=== PATIENT | female | born 1985 | race Caucasian/White ===

== ENCOUNTER 2018-12-06 00:17 | Emergency (ER) | payer OTHER, SELFPAY ==
--- NOTE | 2018-12-06 00:20 | ED_ITS ---
HPI - Skin/Abscess/Foreign Bdy General Chief complaint: Skin/Abscess/Foreign Body Stated complaint: hard cyst on inner right thigh - painful Time Seen by Provider: 12/06/18 00:19 Source: patient Mode of arrival: Ambulatory Limitations: no limitations History of Present Illness HPI narrative: 33-year-old female nonsmoker presents with significant other in the chief complaint of a painful red, spontaneously draining lesion in her right groin which is reminiscent of prior abscesses. She denies fever chills nor nausea or vomiting. It has been gradually worsening over the past week and started draining earlier today. Her pain is worse with motion and improves with rest. MD complaint: abscess/boil Onset (ago): day(s) Tetanus up to date: yes Location: RLE Severity: mild Quality: aching Pain Consistency: constant Relieving factors: rest Exacerbating factors: palpation and movement Associated symptoms: denies other symptoms Treatments prior to arrival: attempted to drain pus at home Related Data Previous Rx's Medication Instructions Recorded doxycycline hyclate 100 mg PO BID #20 tab 12/06/18 Allergies Allergy/AdvReac Type Severity Reaction Status Date / Time No Known Drug Allergies Allergy Verified 12/06/18 00:35 Review of Systems Constitutional Constitutional: Denies chills, Denies fatigue, Denies fever(s), Denies frequent falls, Denies lethargy and Denies weakness Eyes Eyes: Denies change in vision, Denies eye discharge, Denies irritation and Denies loss of vision ENT Ears, Nose, Mouth, and Throat: Denies change in voice, Denies dizziness, Denies neck pain, Denies sore throat and Denies throat swelling Cardiovascular Cardiovascular: Denies chest pain, Denies irregular heart rhythm, Denies lightheadedness, Denies palpitations, Denies dyspnea, Denies dyspnea on exertion and Denies orthopnea Respiratory Respiratory: Denies cough, Denies dyspnea, Denies dyspnea on exertion and Denies wheezing Gastrointestinal Gastrointestinal: Denies abdominal pain, Denies change in bowel habits, Denies diarrhea, Denies nausea and Denies vomiting Genitourinary Genitourinary: Denies hematuria, Denies flank pain, Denies urinary incontinence and Denies urinary urgency Musculoskeletal Musculoskeletal: Denies back pain, Denies muscle weakness, Denies neck pain, Denies numbness and Denies tingling Integumentary/Breasts Skin/Breast: Denies pruritus, Reports erythema, Denies rash, Reports skin pain, Reports skin swelling and Denies wounds Neurologic Neurologic: Denies behavioral changes, Denies confusion, Denies dizziness, D enies frequent falls, Denies loss of vision, Denies numbness, Denies tingling and Denies weakness Psychiatric Psychiatric: Denies anxiety, Denies behavioral changes, Denies confusion, Denies depression, Denies homicidal ideation and Denies suicidal ideation Endocrine Endocrine: Denies fatigue, Denies flushing and Denies palpitations Hematologic/Lymphatic Hematologic/Lymphatic: Denies easy bruising Allergic/Immunologic Allergic/Immunologic: Denies urticaria, Denies throat swelling and Denies wheezing [facility] Medical History Macular degeneration of both eyes (Acute) Social History Smoking Status: Current every day smoker Social History Smoking Status: Current every day smoker Exam Narrative Exam Narrative: GEN: 33-year-old female appears stated age, tearful, morbidly obese AOx3 and in mild distress EYES: Pupils are equal, round, and reactive to light and accommodation. Extraoccular muscles are intact bilaterally. There is no subconjunctival hemorrhage or exudate. CHEST: Lungs are clear to auscultation bilaterally and free of wheezes, rales, or rhonchi. Heart rate is regular rhythm, there are no murmurs, clicks, rubs, or gallops. There is no chest wall tenderness. ABD: Abdomen is soft and nontender. There is no guarding or rebound. Bowel sounds are normal in all 4 quadrants. There is no mass or organomegaly. EXT: Full painless ROM of all extremities with no loss of sensation or strength. SKIN: 2 cm x 2 cm area of induration, erythema, warmth with central opening and spontaneous drainage of foul-smelling purulence material consistent with superficial abscess there is some surrounding induration but no fluctuance outside of this main central area Initial Vital Signs Initial Vital Signs: Vital Signs Pulse Rate 111 H 12/06/18 00:32 Respiratory Rate 16 12/06/18 00:32 Blood Pressure 141/73 H 12/06/18 00:32 Pulse Oximetry 96 12/06/18 00:32 Procedures Abscess I/D Site: lower extremity Side (if applicable): right Local Anesthetic: lidocaine 1% and with bicarb Amount of anesthesia used (mL): 6 Technique: incised with #11 blade Amount of fluid expressed (mL): 5 Irrigation: No Packing used?: none Course Orders Ordered: ED Orders 12/06/18 00:30 Wound Culture and Gram Stain Stat Discontinued Medications Hydrocodone Bitart/Acetaminophen (Vicodin Prepack) 1 bottle MISC SEEINSTR ONE Stop: 12/06/18 00:30 Last Admin: 12/06/18 00:41 Dose: 1 bottle Documented by: MAX Doxycycline Hyclate (Vibramycin) 100 mg PO NOW ONE Stop: 12/06/18 00:30 Last Admin: 12/06/18 00:41 Dose: 100 mg Documented by: MAX Lidocaine/Sodium Bicarbonate (Buffered Lidocaine 10 Ml Syr) 10 ml INJ NOW ONE Stop: 12/06/18 00:30 Last Admin: 12/06/18 00:41 Dose: 10 ml Documented by: MAX Vital Signs Vital signs: Vital Signs - 8 hr 12/06/18 00:32 12/06/18 00:51 12/06/18 01:00 Pulse Rate 111 H 111 H 95 H Respiratory Rate 16 16 18 Blood Pressure 141/73 H 141/73 H Blood Pressure [Left Arm] 129/67 Pulse Oximetry 96 96 99 Discharge Plan Departure Patient Disposition: Home Clinical Impression: Abscess Instructions: DI for Skin Abscess Activity Restrictions/Additional Instructions: *You have been diagnosed with [spontaneously draining cutaneous abscess right thigh] *What to do: *Take medications as directed *Follow up with your primary care provider in 2-3 days, call for an appointment. Let them know you were seen in the Emergency Department and that we ask that you be seen in follow up *Return to ER if you should have any new, worsening or concerning symptoms Prescriptions: New doxycycline hyclate 100 mg tablet 100 mg PO BID Qty: 20 RF: 0
[2018-12-06 00:32] VITALS: BP 141/73; PULSE 111; RESP 16; O2SAT 96
[2018-12-06] MEDS: HYDROCODONE/ACET 5/325 PREPACK 1 BOTTLE MISC (00:41)
[2018-12-06] MEDS: DOXYCYCLINE HYCLATE 100 MG TABLET PO (00:41)
[2018-12-06] MEDS: LIDO 1%/SOD BICARB 8.4% (10ML) 10 ML SYRINGE INJ (00:41)
[2018-12-06 00:51] VITALS: BP 141/73; PULSE 111; RESP 16; O2SAT 96
[2018-12-06 01:00] VITALS: BP 129/67; PULSE 95; RESP 18; O2SAT 99
== END 2018-12-06 01:07 | disposition home or self-care (01) ==
PROVIDERS: Emergency Provider Emergency Medicine; PCP Family Medicine
DX: L02.415 Cutaneous abscess of right lower limb (principal)
CPT/HCPCS: 10060; 87070; 87075; 87077; 87147; 87205; 99282; 99283